=== PATIENT | male | born 1990 | race Caucasian/White ===

== ENCOUNTER 2020-10-31 14:06 | Emergency (ER) | payer OTHER, SELFPAY ==
[2020-10-31 14:10] VITALS: BP 109/77; PULSE 78; RESP 20; TEMP 36.8; O2SAT 99
--- NOTE | 2020-10-31 15:51 | ED.MALEGU ---
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 Patient reports he is sexually active with females and had 2 partners recently. Patient reports 1 partner recently was treated with Rocephin IM injection presumptively for STI without any testing done since she was on her period. Patient denies fever, chills, nausea or vomiting but reports mild lightheadedness. Patient denies penile discharge or urinary burning sensation. Patient is currently getting treated with doxycycline 100 mg b.i.d. dose for last 4 days without any improvements. Patient was [facility] in [place]. Patient is not quite certain for antibiotic medication treatment but was told that he does not have Herpes infection. Patient denies previous sexually transmitted infections and this is 1st time he is experiencing this. Related Data Previous Rx's Medication Instructions Recorded acyclovir 400 mg PO TID 10 Days #30 tab 10/31/20 Allergies Allergy/AdvReac Type Severity Reaction Status Date / Time No Known Drug Allergies Allergy Verified 10/31/20 16:16 Review of Systems <ANAIS Ashley - Last Filed: 10/31/20 17:17> Review of Systems Narrative: General: See HPI HEENT: Denies sinus pain, ear pain, sore throat, difficulty swallowing, dizziness. Respiratory: Denies dyspnea, cough, wheezing, hemoptysis, sputum. Cardiovascular: Denies chest pain, palpitations, orthopnea, edema. Gastrointestinal: Denies nausea, vomiting, abdominal pain, diarrhea, constipation, melena. : See HPI Musculoskeletal: Denies weakness, joint pain or bony pain. Skin: See HPI Patient History <ANAIS Ashley - Last Filed: 10/31/20 17:17> Medical History Family history non-contributory Surgical History No pertinent past surgical history Social History Smoking Status: Never smoker Smoking Status: Never smoker Substance Use Type: does not use Exam <ANAIS Ashley - Last Filed: 10/31/20 17:17> Narrative Exam Narrative: General appearance: well developed, well nourished, in no acute distress. Head: normocephalic, atraumatic, no scalp lesions, non-tender. ENT: Hearing grossly intact. Nose without bleeding, purulent discharge, septal hematoma or deviation. Airway patent. Neck/Thyroid: neck supple, full range of motion, no visible masses or meningeal signs. No JVD, bilateral groin lymphadenopathy Skin: Dry, scattered <1cm dry ulcerated lesions in yellow and red discoloration in the base. Scattered skin lesions in suprapubic, shaft of penis and scrotum. No obvious drainage. FELIPA Ortiz stand by assisted and cultures obtained. Heart: no clubbing, no cyanosis, no edema. Lungs: Breathing even and unlabored. No stridor. No accessory muscles used. Able to speak in full sentences. Chest: normal shape and expansion. Abdomen: non-obese, non-distended. Neurologic: alert and oriented. Cognitive exam, [employer] and PNS grossly intact on informal exam. Psych: good eye contact, normal affect. Initial Vital Signs Initial Vital Signs: Vital Signs Temperature 98.3 F 10/31/20 14:10 Pulse Rate 78 10/31/20 14:10 Respiratory Rate 20 10/31/20 14:10 Blood Pressure 109/77 10/31/20 14:10 Pulse Oximetry 99 10/31/20 14:10 <Hilary Archuleta DO - Last Filed: 11/01/20 11:07> Initial Vital Signs Initial Vital Signs: Vital Signs Temperature 98.3 F 10/31/20 14:10 Pulse Rate 78 10/31/20 14:10 Respiratory Rate 20 10/31/20 14:10 Blood Pressure 109/77 10/31/20 14:10 Pulse Oximetry 99 10/31/20 14:10 Scores <GENA AshleyP - Last Filed: 10/31/20 17:17> GCS [place] coma scale eye opening: Spontaneous [place] coma scale verbal response: Orientated [place] coma scale motor response: Obey commands [place] coma scale total score: 15 Course <GENA AshleyP - Last Filed: 10/31/20 17:17> Orders Ordered: Discontinued Medications Acyclovir (Acyclovir 400 Mg Tablet) 400 mg PO NOW ONE Stop: 10/31/20 16:33 Last Admin: 10/31/20 16:50 Dose: 400 mg Documented by: BTONER Vital Signs Vital signs: Vital Signs - 8 hr 10/31/20 14:10 Temperature 98.3 F Pulse Rate 78 Respiratory Rate 20 Blood Pressure 109/77 Pulse Oximetry 99 <Hilary Archuleta DO - Last Filed: 11/01/20 11:07> Orders Ordered: Discontinued Medications Acyclovir (Acyclovir 400 Mg Tablet) 400 mg PO NOW ONE Stop: 10/31/20 16:33 Last Admin: 10/31/20 16:50 Dose: 400 mg Documented by: BTONER Vital Signs Vital signs: Vital Signs - 8 hr 10/31/20 14:10 Temperature 98.3 F Pulse Rate 78 Respiratory Rate 20 Blood Pressure 109/77 Pulse Oximetry 99 MDM - Male Genitourinary <GENA AshleyP - Last Filed: 10/31/20 17:17> Differential Diagnosis Differential diagnosis: Likely genital herpes simplex and other (Chlamydia/gonorrhea, folliculitis) Medical Records Attestation: I reviewed the patient's medical records. Lab Data Attestation: I reviewed the patient's lab results. Labs: Lab Results 10/31/20 Range/Units 14:15 Ur Chlamydia DNA (PCR) Not detected N gonorrhoeae DNA (PCR) Not detected MDM Narrative Medical decision making narrative: This is a 30-year-old male presents to ED with concerns for STIs. Patient states no previous history of STIs but is sexually active with 2 female partners. Patient is currently taking doxycycline 100 mg b.i.d. dose for last 4 days he was evaluated at [facility] in [place] likely for skin infection/folic ill itis without any improvements. Reports now his scrotal region, lymph nodes this comfortable. No urinary symptoms but burning and itching sensation is on shaft of penis, suprapubic area, pubic area where small ulcerate skin lesions. GC chlamydia test was negative. Physical exam is more consistent with genital herpes. Findings discussed with patient and presumptively will treat patient with antiviral medication. Labs drawn for HSV 1/to IgM and skin cultures. Patient informed will contact patient if this test results come back positive. Advised to complete a course of antibiotic medication treatment with doxycycline in the meantime. Patient advised to refrain from sexual encounter until sores are healed and to use condoms in the future since this could be contagious. Patient verbalized understanding in agreement with the treatment plan. <Hilary Archuleta DO - Last Filed: 11/01/20 11:07> Lab Data Labs: Lab Results 10/31/20 Range/Units 14:15 Ur Chlamydia DNA (PCR) Not detected N gonorrhoeae DNA (PCR) Not detected Discharge Plan Departure Patient Disposition: Home Clinical Impression: Genital HSV Qualifiers: Herpes simplex infection site: unspecified site of urogenital system Qualified Code(s): A60.00 - Herpesviral infection of urogenital system, unspecified Instructions: Herpes Simplex Virus Testing, DI for Genital Herpes Activity Restrictions/Additional Instructions: You have been diagnosed with [and treated for presumptive genital herpes. Urine test for chlamydia and gonorrhea was negative. Your physical exam is more consistent with HSV type 2.]. You should receive a phone call from us if test results come back positive. What to do: *Take your medications as directed. First dose of acyclovir was given in ED. please continue to take 3 times a day for next 10 days. This medication have been transmitted to [facility]. *Follow up with your primary care provider in 2-3 days, call for an appointment. Let them know you were seen in the ED and that we asked you to be seen in follow up. *Return to ED if you have any new, worsening, or concerning symptoms, such as [worsening pain, rash, fever, chest pain, breathing difficulty, unable to tolerate fluids or any acute concerns.]. As we discussed, you should complete a course of doxycycline. Prescriptions: New acyclovir 400 mg tablet 400 mg PO TID 10 Days Qty: 30 RF: 0 Referrals: [facility] [Outside] <Hilary Botnick, DO - Last Filed: 11/01/20 11:07> Sign Out Provider Sign Out Attestation: I was immediately available in the department for consultation. Documentation has been reviewed. I agree with assessment and plan.
[2020-10-31 15:54] LABS: Urine N gonorrhoeae NOT DETECTED
--- NOTE | 2020-10-31 16:13 | PC.NURSE ---
Pt has multiple healing wounds on pubic area and penis.
[2020-10-31 16:22] LABS: Urine Chlamydia NOT DETECTED
[2020-10-31] MEDS: ACYCLOVIR 400 MG TABLET PO (16:50)
[2020-10-31 17:00] VITALS: BP 116/79; PULSE 79; RESP 18; O2SAT 100
[2020-11-01 19:40] LABS: HSV I/II IgM <0.91 Ratio (0.00-0.90)
== END 2020-10-31 17:00 | disposition home or self-care (01) ==
PROVIDERS: Emergency Medicine; Emergency Provider Nurse Practitioner Family
DX: A60.00 Herpesviral infection of urogenital system, unspecified (principal)
CPT/HCPCS: 86694; 87070; 87075; 87077; 87147; 87186; 87205; 87255; 87491; 87591; 99283